=== PATIENT | female | born 1955 | race Caucasian/White ===

== ENCOUNTER 2023-05-31 18:13 | Inpatient (IN) | payer OTHER, SELFPAY ==
[2023-05-31] VITALS (13 sets, daily range): BP systolic 130–176; BP diastolic 58–103; BMI 21.1
[2023-05-31 14:01] LABS: % Basophils 0.4 % (0-2); % Immature Granulocytes 0.4 % (0-0.5); % Lymphocytes 22.1 % (20.5-51.1); % Monocytes 9.3 % (1.7-9.3); % Neutrophils 66.8 % (42.2-75.2); Absolute Eosinophils 0.1 10^3/uL (0-0.7); Absolute Lymphocytes 1.6 10^3/uL (1.2-3.4); Absolute Monocytes 0.7 10^3/uL (0.1-0.6); Absolute Neutrophils 4.8 10^3/uL (1.4-6.5); Hematocrit 41.3 % (37.0-47.0); Hemoglobin 14.4 g/dL (12.0-16.0); Mean Corp Hgb Conc. 34.9 g/dL (33.0-37.0); Mean Corpuscular Hgb 30.5 pg (27.0-31.0); Mean Corpuscular Volume 87.5 fL (81.0-99.0); Mean Platelet Volume 10.8 fL (7.4-10.4); Nucleated Red Blood Cells % 0 %; Platelet Count 288 10^3/uL (130-400); Red Blood Cell Count 4.72 10^6/uL (4.20-5.40); White Blood Cell Count 7.1 10^3/uL (4.8-10.8)
[2023-05-31 14:24] LABS: ALT (SGPT) 15 U/L (0-35); AST (SGOT) 27 U/L (14-36); Albumin 4.7 g/dl (3.5-5.0); Alkaline Phosphatase 103 U/L (38-126); Blood Urea Nitrogen 12 mg/dl (7-17); Calcium 9.7 mg/dl (8.4-10.2); Carbon Dioxide 29 mmol/L (22-30); Chloride 104 mmol/L (98-107); Glucose 103 mg/dl (70-99); Potassium 3.7 mmol/L (3.5-5.1); Sodium 137 mmol/L (135-145); Total Bilirubin 0.8 mg/dl (0.2-1.3); Total Protein 7.5 g/dl (6.3-8.2); eGFR > 60.00
[2023-05-31 14:30] LABS: Troponin I < 0.012 ng/ml
[2023-05-31 16:22] LABS: Troponin I 0.025 ng/ml
--- NOTE | 2023-05-31 16:35 | CON.CAR ---
Addendum entered and electronically signed by Alon Valentine MD 05/31/23 17:22:
I saw and examined the patient.
The CONCRETE CARPENTER's note was reviewed and I agree with the note.
Comment: 67 y/o female with hypertension, dyslipidemia, and fam history of CAD (dad [place] age 57) who is here for evaluation of episode today that included mid-sternal chest pressure (also with nausea, fogginess, palpitations, neck, throat, and
back discomfort, and leg weak feeling). Her initial ECG showed anterolateral ST depression and 2nd troponin is slightly above normal.
- trend trop if continues to rise then start heparin gtt
- cath tomorrow
- npo after midnight
- aspirin
- statin
Original Note:
Consultation
Consultation Request
Date/Time Consultation Requested: 05/31/23 1446
Date/Time Consultation Performed: 05/31/23 1600
Requesting Provider: Wilton Porter
Performing Provider: Venus SALEH for Dr. Valentine
Reason for Consultation: Chest discomfort
Medical History
-
Chief Complaint: Chest discomfort
History of Present Illness:
67 y/o female with hypertension, dyslipidemia, and fam history of CAD (dad [place] age 57) who is here for evaluation of episode today that included mid-sternal chest pressure (also with nausea, fogginess, palpitations, neck, throat, and back
discomfort, and leg weak feeling). Overall, it lasted about 2 hours. She is CP free at the time of my assessment. EKG on arrival showed ST with anterolateral ST depression. First trop normal, 2nd 0.025. Had a cath 2013 with 30% mid LAD stenosis.
Past Medical History
Past Medical History: HTN and Hypercholesterolemia
Social History
Tobacco: Non-Smoker
Employment: Employed
Family History
Family History: Early CAD (dad [place] age 57)
Allergies / Home Medications
Allergy/AdvReac Type Severity Reaction Status Date / Time
No Known Allergies Allergy Verified 05/31/23 13:12
Medicines:
amlodipine 5 mg PO daily
Otherwise takes vitamins
Review of Systems
-
History Source: Patient
All other systems: Negative unless noted
Cardiac: Chest Pain and Palpitations
Abdomen/GI: Nausea
Neurological: Other (fogginess)
Physical Exam
Vital Signs
Pulse Resp BP Pulse Ox
83 18 133/88 98
05/31/23 15:00 05/31/23 15:00 05/31/23 15:00 05/31/23 13:13
Lab Results
05/31/23 13:49
05/31/23 13:49
Troponin I 0.025 ng/ml D 05/31/23 15:52
Physical Exam
General: Well Developed, Well Nourished and No Apparent Distress
HEENT: Normocephalic and Anicteric
Respiratory: Clear and Non Labored Respirations
Cardiac: Regular Rhythm
Breast: Deferred by me
GI: Soft, Non Distended and Normal Bowel Sounds
Musculoskeletal: No Edema
Skin: Warm and Dry
Neuro: AO x 3
Psych: Calm
Impression / Plan
-
Chest discomfort:
-trend trops and EKG's
-patient risk factors: HTN, dyslipidemia, and fam hx
-EKG abnormal on arrival. Will plan for cath in AM.
-If trops trend upward, would add heparin gtt
HTN:
-continue amlodipine and monitor
Dyslipidemia:
-add statin
-check lipids in AM
Data Reviewed
-
EKG: Tracing Personally Visualized and interpreted (ST with ST abnormalities as noted)
CT Scan: Report Reviewed by me (no PE)
Medical Tests (Nuc Med, Echo etc): Report Reviewed by me (echo 04/16/23: Normal left ventricular size, wall thickness and systolic function. No regional wall motion abnormalities are seen. LV ejection fraction is 65-70% by Louie's method of
discs. Normal diastolic function. Normal right ventricular size and function. Mild mitral regurgitation. )
Labs: Labs Reviewed by me
[2023-05-31] MEDS: ASPIRIN 325 MG PO (16:42)
--- NOTE | 2023-05-31 16:54 | ED.GENMED ---
History of Present Illness
General
Chief Complaint: Chest Pain
Source: patient
Exam Limitations: none
Time Seen by Provider: 05/31/23 13:44
Travel History
Have you had any contact with someone who has COVID-19?: No
Do you have any symptoms of coronavirus? Fever > 100 degrees, chills, cough, shortness of breath, sore throat, loss of taste or smell, muscle aches, or headache?: No
History of Present Illness
History of Present Illness:
67-year-old female with history of hypertension and family history of coronary artery disease presents with onset of chest pressure palpitations diaphoresis nausea and shortness of breath that was exertional this morning. This started around 1130.
Since sitting down the emergency room for quite some time she states she has some improvement of her symptoms. She does not smoke. No leg swelling or calf pain. No recent travel or surgery. Some of the pain did radiate to her neck and to her back
Past History
Past History
ED Past Medical History: HTN
ED Past Surgical History: None
Social History
Tobacco: Former smoker
Alcohol: None
Drug: None
Phy Exam
Physical Exam
Physical Exam:
General: Well-appearing female no acute respiratory distress
HEENT: Normocephalic atraumatic neck is supple
Heart: Tachycardic but regular
Lungs: Clear to auscultation bilaterally no wheezing
Extremities: No cyanosis or edema
Skin: Warm no rash or lesion
Scores
Heart Score for Chest Pain Patients
STEMI patient?: No
History: Moderately Suspicious
ECG: Nonspecific Repolarization
Age: >/= 65 years
Risk Factors: 1 or 2 Risk Factors
Troponin: </= Normal Limit
Heart Score for Chest Pain Patients: 5
Heart Score Risk: 20.3% MACE over next 6 weeks
Course
Orders/Labs/Results
Orders:
Orders
05/31/23 13:14
EKG [Electrocardiogram (*1)] Urgent
Reason for Study: Chest Pain
EKG- Treatment ONCE
05/31/23 13:49
Complete Blood Count/With Diff Urgent
Comprehensive Metabolic Panel Urgent
Troponin I Urgent
05/31/23 14:06
CT Chest Pe Study Urgent
Comment:
Reason For Exam: chest pain, tachycardia
05/31/23 14:46
CARDIOLOGY CONSULT Urgent
Consulting Provider: Alon Valentine
Was physician already notified: Yes
05/31/23 15:52
Troponin I Urgent
05/31/23 16:27
EKG [Electrocardiogram (*1)] Routine
Reason for Study: Chest Pain
05/31/23 16:29
Aspirin 325 mg PO NOW STA
05/31/23 18:00
Rosuvastatin Calcium [Crestor] 40 mg PO QPM
05/31/23 22:00
Troponin I Q6H
06/01/23 04:00
Troponin I Q6H
06/01/23 06:00
Electrocardiogram (*1) IN AM
Reason for Study: Chest Pain
NPO
Allow oral meds: Yes
Allow clear liquids: No
Hgba1c [Glycohemoglobin (HgbA1c)] IN AM
Lipid Profile [Cardiovascular Evaluation] IN AM
06/01/23 08:00
Aspirin Chewable [Low Strength Aspirin] 81 mg PO DAILY
Abnormal Lab Results
05/31/23
13:49
MPV 10.8 H fL
(7.4-10.4)
Absolute Monos (auto) 0.7 H 10^3/uL
(0.1-0.6)
Glucose 103 H mg/dl
(70-99)
05/31/23 13:49
05/31/23 13:49
Vital Signs
Initial and Last Documented VS:
Initial Vital Signs
Pulse Resp BP Pulse Ox
126 16 176/103 98
05/31/23 13:13 05/31/23 13:13 05/31/23 13:13 05/31/23 13:13
Last Documented Vital Signs
Pulse Resp BP Pulse Ox
83 18 133/88 98
05/31/23 15:00 05/31/23 15:00 05/31/23 15:00 05/31/23 13:13
MDM/Problems Addressed
Differential Diagnosis Includes:
Chest pain. Differential could include ACS versus PE dissection less likely.
Will check labs including troponin EKG. Given persistent tachycardia on exam, will order CT PE study
*Critical Care Note
Total Time (30-74mins, 75-104mins- exclusive of procedures): Not Applicable
Update Note
Update Note:
Initial troponin on phone and did increase to 0.025 which is still normal there is a change. Patient has concerning story. Contacted cardiology who saw the patient and recommended aspirin load and keep in hospital for catheterization tomorrow.
ED Attending Note
-
Portions of this chart may have been created with voice recognition software.� Occasional wrong word or��sound alike� substitutions may have occurred due to the inherent limitations of voice recognition software.
Discharge Plan
Departure
Patient Disposition: Admit
Date of Disposition: 05/31/23
Time of Disposition: 17:04
Admit to: Telemetry
Presentation/result/management discussed w/ accepting MD/DO: Hospitalist
Discharge Problem:
Chest pain
Prescriptions:
No Action
lisinopril 20 MG tablet
20 mg PO HS
aspirin 81 MG tablet,delayed release (DR/EC)
81 mg PO DAILY
ascorbic acid (vitamin C) [Vitamin C] 500 MG tablet
500 mg PO DAILY
cholecalciferol (vitamin D3) 2,000 UNITS tablet
2,000 units PO DAILY
vitamin E (dl, acetate) 400 UNITS capsule
400 units PO DAILY
omega 1-qrf-zer-fish oil [Fish Oil] 1 EACH capsule
1 ea PO DAILY
amoxicillin 500 MG capsule
500 mg PO TID Qty: 21 0RF
Referrals:
UNKNOWN - PT DOES,NOT KNOW [Family Provider] -
Interventions
Interventions:
*Risk Screen - Suicide Last Done: 05/31/23 13:13
*General Assessment Last Done: 05/31/23 13:13
*Neglect/Abuse Screening Last Done: 05/31/23 13:13
*ED COVID-19 Vaccine History Last Done: 05/31/23 13:28
ED- Cardiac Assessment Last Done: 05/31/23 13:50
--- NOTE | 2023-05-31 17:06 | HPS.HSE ---
Addendum entered and electronically signed by Waleska Milton MD 05/31/23 17:53:
67-year-old female presented with chest pain she feels like muscle tightness in the throat
On examination awake alert oriented neck no neck distress
Cardiovascular system sounds appreciated
Chest clear to auscultation
Abdomen soft nontender
Extremity no edema
# Chest pain
CT-PE study negative
EKG ST depressions anterolateral leads and T inversions in the inferior leads
Admit for cardiac workup
Nonobstructive coronary artery disease and previous CAD
Check troponin
If going up may need heparin drip
Cardiology has been consulted
Continue aspirin, add beta-blockers, statin
Lipid panel in the morning
# Hypertension-Norvasc to be continued
Add Coreg
# Dyslipidemia-statin
#Ex Smoker
# DVT prophylaxis Lovenox
#CODE STATUS-patient wants to be DNR
Original Note:
Family Physician
-
Family Physician: NOT KNOW UNKNOWN - PT DOES
Chief Complaint
-
chest pain
History of Present Illness
67 y/o female with hypertension, dyslipidemia presented to us with mid-sternal chest pressure radiating to shoulder blades and left-sided neck this morning.She is CP free at the time of my assessment. denied CHAUDHRY, dizzy or syncopal episode. denied
abdominal pain,n,v,d. denied dysuria or hematuria.
EKG on arrival showed ST with anterolateral ST depression. First trop normal, 2nd 0.025.� Had a cath 2013 with 30% mid LAD stenosis. admitting for further managment.
Medical History
Past Medical History
Past Medical History: Reports Other
Additional Past Medical History:
htn
hld
Past Surgical History: Reports Other
Additional Past Surgical History:
cataract surgery
Social History
Tobacco: Former Smoker
Alcohol: None
Drug: None
Personal: Partner
Living: With Family
Employment: Employed
Family History
Family History: Not pertinent
Allergies / Home Medications
Allergies reflects when Allergies were last updated in [employer].
Home Medications with original date entered in [employer]
Allergy/Medication List:
Allergies
Allergy/AdvReac Type Severity Reaction Status Date / Time
No Known Allergies Allergy Verified 05/31/23 13:12
Home Medications
amlodipine 5 mg tablet 5 mg PO DAILY 05/31/23
ascorbic acid (vitamin C) 500 mg tablet (Vitamin C) 500 mg PO DAILY 05/31/23
aspirin 81 mg tablet,delayed release 81 mg PO DAILY 05/31/23
cholecalciferol (vitamin D3) 50 mcg (2,000 unit) tablet (Vitamin D3) 50 mcg PO DAILY 05/31/23
omega 6-ngb-ysq-fish oil 1,000 mg (120 mg-180 mg) capsule (Fish Oil) 1 cap PO DAILY 05/31/23
vitamin E 268 mg (400 unit) capsule 268 mg PO DAILY 05/31/23
Review of Systems
-
Constitutional: Reports No Symptoms
EENT: Reports No Symptoms
Respiratory: Reports No Symptoms
Cardiac: Reports Chest Pain
Abdomen/GI: Reports No Symptoms
: Reports No Symptoms
Musculoskeletal: Reports No Symptoms
Skin: Reports No Symptoms
Neurological: Reports No Symptoms
Endocrine: Reports No Symptoms
Hematologic/Lymphatic: Reports No Symptoms
Psych: Reports No Symptoms
Physical Exam
Vital Signs
Vital Signs
Pulse Resp BP Pulse Ox
83 18 133/88 98
05/31/23 15:00 05/31/23 15:00 05/31/23 15:00 05/31/23 13:13
Physical Exam
General: Well Developed, Well Nourished and No Apparent Distress
HEENT: NormoCephalic, Moist mucous membranes and Atraumatic
Respiratory: Clear
Cardiac: S1/S2 and Regular Rhythm; No Murmur or Rub
GI: Soft, Non Tender, Non Distended and Normal Bowel Sounds; No Organomegaly
Rectal: Deferred by Provider
Musculoskeletal: No Clubbing, No Cyanosis and No Edema
Skin: No Rash
Neuro: AO x 3 and Nonfocal/grossly intact
Psych: Calm
Laboratory Results
-
05/31/23 13:49
05/31/23 13:49
Laboratory Results
Total Bilirubin 0.8 mg/dl (0.2-1.3) 05/31/23 13:49
AST 27 U/L (14-36) 05/31/23 13:49
ALT 15 U/L (0-35) 05/31/23 13:49
Alkaline Phosphatase 103 U/L (38-126) 05/31/23 13:49
Troponin I 0.025 ng/ml D 05/31/23 15:52
Data Reviewed
-
Diagnostic Radiology: Report Reviewed by me
Lab Data: Labs Reviewed by me
Impression/Plan
-
#exertional chest pain associated with sob r/o ACS
-trop 0.025
-trend trop
-chest CT with No evidence of pulmonary embolism. No significant abnormality identified in the chest, as described above
-EKG with sinus tachycardia, possible left arterial enlargement, nonsepcific ST and T wave abnormality
- cath in AM.
-heparin drip if trop trending up
-asa continued
-stain
-cardiology consulted
#essential htn
-hypertensive on arrival
-Norvasc continued
-Coreg 3125 added
#Dyslipidemia:
-statin
-check lipids in AM
#DVT prophylaxis
-Lovenox
#CODE status
-DNR
[2023-05-31] MEDS: COREG 3.125 MG PO (18:29)
[2023-05-31] MEDS: FLUSH (NSS) 1 FLUSH IV (18:56)
[2023-05-31] MEDS: CRESTOR 40 MG PO (18:56)
[2023-05-31 23:14] LABS: Troponin I 0.032 ng/ml
[2023-06-01] VITALS (11 sets, daily range): BP systolic 107–136; BP diastolic 48–89
[2023-06-01] MEDS: COREG PO (00:05)
[2023-06-01] MEDS: LOVENOX 40 MG SC (00:05)
--- NOTE | 2023-06-01 00:26 | PTCARENOTE ---
Pt rec'd from ED few mins before midnight. No c/o cp or sob. adm hx taken and recorded. Sinus on telemetry. Pt aware of npo status after mn for cath. Call paul within reach. Pt instructed to call if cp reoccurs
[2023-06-01 06:35] LABS: Hematocrit 37.8 % (37.0-47.0); Mean Corp Hgb Conc. 34.4 g/dL (33.0-37.0); Mean Corpuscular Hgb 30.2 pg (27.0-31.0); Mean Corpuscular Volume 87.9 fL (81.0-99.0); Mean Platelet Volume 11.2 fL (7.4-10.4); Platelet Count 290 10^3/uL (130-400); Red Cell Dist. Width 13.2 % (11.5-14.5); White Blood Cell Count 8.3 10^3/uL (4.8-10.8)
--- NOTE | 2023-06-01 06:41 | PTCARENOTE ---
Pt cp free during the night. Remains npo for cath today
[2023-06-01 07:00] LABS: Blood Urea Nitrogen 19 mg/dl (7-17); Calcium 9.3 mg/dl (8.4-10.2); Carbon Dioxide 27 mmol/L (22-30); Chloride 104 mmol/L (98-107); Estimated Creatinine Clearance 69 ml/min; Glucose 94 mg/dl (70-99); HDL Cholesterol 68 mg/dl; LDL Cholesterol, Calculated 128 mg/dl; Potassium 3.7 mmol/L (3.5-5.1); Sodium 136 mmol/L (135-145); Total Cholesterol 213 mg/dl (50-199); Triglyceride 89 mg/dl (10-149); Very Low Density Lipoprotein 17 mg/dl (0-30); eGFR > 60.00
[2023-06-01 07:15] LABS: Troponin I 0.027 ng/ml
[2023-06-01 08:23] LABS: Hepatitis C Antibody Negative (Negative)
--- NOTE | 2023-06-01 08:30 | W.PN.HOSP.TC ---
Today's Communication/Plan
-
Cath
Assessment / Plan
Assessment / Plan
On examination awake alert oriented
Cardiovascular system sounds appreciated
Chest clear to auscultation
Abdomen soft nontender
Extremity no edema
# Chest pain
CT-PE study negative
EKG ST depressions anterolateral leads and T inversions in the inferior leads
Nonobstructive coronary artery disease and previous cath
Trop neg
Add PPI
Continue aspirin, add beta-blockers, statin
Lipid panel moted
# Hypertension-Norvasc to be continued
Added Coreg
# Dyslipidemia-statin
#Ex Smoker
# DVT prophylaxis Lovenox
#CODE STATUS-code status readdressed. DNR is for irreversible changes. She will be full code per today's discussion.
D/W RN at bed side
Anticipated Discharge: Within 24 hours
Subjective/Interval History
-
Date of Service: June 01, 2023
Objective Data
-
Labs:
Laboratory Results
06/01/23
05:48
WBC 8.3
Hgb 13.0
Hct 37.8
Plt Count 290
Sodium 136
Potassium 3.7
Chloride 104
Carbon Dioxide 27
BUN 19 H
Creatinine 0.7
Glucose 94
Calcium 9.3
Vital Signs:
Vital Signs
Temp Pulse Resp BP Pulse Ox
98.6 F 79 16 136/56 95
06/01/23 08:25 05/31/23 23:46 06/01/23 08:25 06/01/23 08:27 06/01/23 08:25
[2023-06-01] MEDS: LOW STRENGTH ASPIRIN 81 MG PO (08:31)
[2023-06-01] MEDS: COREG 3.125 MG PO (08:32)
[2023-06-01] MEDS: NORVASC 5 MG PO (08:32)
[2023-06-01] MEDS: VITAMIN D3 (cholecalciferol) 50 MCG PO (08:32)
[2023-06-01] MEDS: PROTONIX 40 MG PO (08:33)
--- NOTE | 2023-06-01 10:28 | CM ---
CM following for DC planning needs.
Met w/ patient at bedside to complete initial assessment.
Pt. resides in a private, 2 story home w/ friend and occasionally adult son. She is functionally indep. at baseline w/ ADLs, mobility without any assisted device.
Pt. has Rx plan and uses [facility] in [place].
Plan is for DC to home without needs.
Will cont. to follow.
[2023-06-01 11:15] LABS: Glycohemoglobin (HgbA1c) 5.9 % (4.0-5.6)
[2023-06-01] MEDS: PROTONIX PO (11:34)
[2023-06-01 13:55] LABS: ACT-LR - POC 274 Seconds (116-155)
--- NOTE | 2023-06-01 14:33 | ITS.CL.CATH ---
Medical Transport Specialist - Catheterization
Cardiac Catheterization
Procedure Report:
CARDIAC CATHETERIZATION REPORT
Date of Procedure: 06/01/2023
Referring: Alon Valentine MD
Indication: Suspected unstable angina (peak Trop 0.032)
HEMODYNAMIC DATA
AO: 150/68
LV: 150/14
LEFT VENTRICULOGRAPHY: Normal left ventricular wall motion with EF 67%
CORONARY ANGIOGRAPHY
Dominance: Right
Left Main: Normal
LAD: Focal 50% mid LAD stenosis spanning the takeoff of the second septal prior authorization technician. There is 30-40% mid to distal LAD stenosis past the takeoff of the large second diagonal branch
Circumflex: Normal
RCA: Normal dominant vessel
FloWire assessment: At the conclusion of the diagnostic study we proceeded with FloWire assessment of the LAD disease. Heparin was used for anticoagulation. A 5 Armenian JL 3.5 guide catheter was advanced to the left coronary ostium. A [employer] flow
wire was advanced into the distal LAD. iFR measurements were 0.95, 0.95, and 0.95. These are all consistent with nonflow-limiting disease.
Closure Device: None-the procedure was performed via the right radial artery. The Shlomo's test was normal prior to the procedure.
Radiation (mGy): 48.6
DAP (cm2.Gy): 5.0
Fluoroscopy time: 4.7 minutes
CONCLUSIONS
1: Systemic hypertension
2: Normal left ventricular function with EF 67%
3. Single-vessel CAD as described above in the LAD. The disease is non-flow limiting
4. Recommend ASA and statin to keep LDL<70
Copy to: Sergo Calloway MD and Laurel Torrez DO
Naeem French MD, [facility], [facility]
--- NOTE | 2023-06-01 15:12 | W.DS.TRANS ---
Addendum entered and electronically signed by Waleska Milton MD 06/01/23 15:43:
Dictation- [id number]
Original Note:
DC Summary - Airline Reservationist
-
Discharge Instructions:
Discharge Diagnosis/Procedures Cardiac catheterization, nonobstructive coronary
artery disease, hypertension, high cholesterol
Diet Low Fat,2 Gram Sodium
Activity As tolerated
Driving Restrictions No driving for 24 hours
Blood Work cholesterol in 3 months
Instructions:
Stand-Alone Forms: DC Instructions- Cath/EP Lab
Changes to Home Medications: Yes
Discharge Medications:
DC Medications w/original date entered in [employer]
amlodipine 5 mg tablet 5 mg PO DAILY Blood Pressure 05/31/23
ascorbic acid (vitamin C) 500 mg tablet (Vitamin C) 500 mg PO DAILY Supplement 05/31/23
aspirin 81 mg tablet,delayed release 81 mg PO DAILY Blood Clot Prevention/Tx 05/31/23
cholecalciferol (vitamin D3) 50 mcg (2,000 unit) tablet (Vitamin D3) 50 mcg PO DAILY Supplement 05/31/23
omega 6-jth-cre-fish oil 1,000 mg (120 mg-180 mg) capsule (Fish Oil) 1 cap PO DAILY Supplement 05/31/23
carvedilol 3.125 mg tablet 3.125 mg PO BID Blood pressure #60 tabs 06/01/23
pantoprazole 40 mg tablet,delayed release 40 mg PO DAILY PRN heart burn #30 tabs 06/01/23
rosuvastatin 40 mg tablet 40 mg PO QPM High cholesterol #30 tabs 06/01/23
Home Medication Changes
new
carvedilol 3.125 mg tablet 3.125 mg PO BID Blood pressure #60 tabs 06/01/23
pantoprazole 40 mg tablet,delayed release 40 mg PO DAILY PRN heart burn #30 tabs 06/01/23
rosuvastatin 40 mg tablet 40 mg PO QPM High cholesterol #30 tabs 06/01/23
Pending Results: No
[2023-06-01] MEDS: LOVENOX SC (17:25)
[2023-06-01] MEDS: CRESTOR 40 MG PO (17:25)
--- NOTE | 2023-06-01 18:33 | PTCARENOTE ---
Pt recovered post cardiac cath done via right radial artery. Radial band removed without problem. Pt denied any discomfort, voiding without difficulty, up walking independently. Pt seen by Dr. Galeano and . Telemetry and IV device removed.
Discharge instructions reviewed with pt and her daughter regarding activity and driving guidelines, medications and their possible side effects, wound care, reporting cares and concerns and follow up appt's. very good understanding verbalized. Pt
escorted out via wheelchair and discharge to home.
== END 2023-06-01 18:39 | disposition home or self-care (01) | DRG 287 ==
LOC: IVU 18:13
PROVIDERS: Internal Medicine Cardiovascular Disease; Nurse Practitioner; Physician Assistant; Registered Nurse; ADMITTING PHYSICIAN Hospitalist; CONSULT PHYSICIAN Internal Medicine Cardiovascular Disease; EMERGENCY PHYSICIAN Student in an Organized Health Care Education/Training Program
PROC: B2151ZZ Fluoroscopy of Left Heart using Low Osmolar Contrast (ICD-10-PCS; 2023-06-01)
PROC: B2111ZZ Fluoroscopy of Multiple Coronary Arteries using Low Osmolar Contrast (ICD-10-PCS; 2023-06-01)
PROC: 4A023N7 Measurement of Cardiac Sampling and Pressure, Left Heart, Percutaneous Approach (ICD-10-PCS; 2023-06-01)
DX: I25.10 Atherosclerotic heart disease of native coronary artery without angina pectoris (principal); I10 Essential (primary) hypertension; E78.00 Pure hypercholesterolemia, unspecified; Z87.891 Personal history of nicotine dependence; Z79.82 Long term (current) use of aspirin; Z66 Do not resuscitate; Z82.49 Family history of ischemic heart disease and other diseases of the circulatory system
CPT/HCPCS: 71275; 80048; 80053; 80061; 83036; 84484; 85025; 85027; 85347; 86803; 93005; 93458; 93571; 99285; C1769; C1894; Q9967

== ENCOUNTER → 2023-06-27 14:38 | Outpatient (REF) | payer OTHER, SELFPAY | LOC: RAD 14:38 | PROVIDERS: ATTENDING PHYSICIAN Internal Medicine Cardiovascular Disease; FAMILY PHYSICIAN Family Medicine | DX: I10 Essential (primary) hypertension (principal) | CPT/HCPCS: 93975 ==

== ENCOUNTER → 2023-07-04 08:16 | Outpatient (REF) | payer OTHER, SELFPAY | LOC: RCS 08:16 | PROVIDERS: ATTENDING PHYSICIAN Nurse Practitioner; FAMILY PHYSICIAN Family Medicine | DX: R00.1 Bradycardia, unspecified (principal) | CPT/HCPCS: 93225; 93226 ==

== ENCOUNTER 2023-12-02 10:45 | Emergency (ER) | payer OTHER, SELFPAY ==
[2023-12-02 10:52] VITALS: BP 142/81
[2023-12-02 11:25] LABS: Urine Albumin 1+ (Neg - Trace); Urine Bilirubin 1+ (Negative); Urine Character Very Cloudy (Clear); Urine Color Yellow; Urine Glucose Negative (Negative); Urine Ketone Trace (Negative); Urine Leukocyte 2+ (Negative); Urine Nitrite Positive (Negative); Urine Occult Blood 4+ (Negative); Urine Urobilinogen 1+ (Neg - 1+)
--- NOTE | 2023-12-02 11:27 | ED.GENMED ---
Addendum entered and electronically signed by Mirian Henry NP 12/05/23 09:56:
Final urine culture back: Pt on Keflex. States symptoms of hematuria, burning, frequency are gone and she feels better. No changes needed.
Addendum entered and electronically signed by Wilton Porter PA-C 12/04/23 07:11:
Pulmonary urine culture shows greater than 100,000 colony-forming units of E. coli. Patient placed on Keflex. Sensitivities pending
Original Note:
History of Present Illness
General
Chief Complaint: Urinary Symptoms
Time Seen by Provider: 12/02/23 10:57
History of Present Illness
History of Present Illness:
HPI: Onset today of dysuria and blood on toilet paper while wiping; associated w/ urgency. The patient had been on antibiotics related to sinusitis and laryngitis earlier this month.
EXAM:
GENERAL: Well appearing in no distress
HEENT: Moist oral mucosa
CARDIOVASCULAR: No murmurs, normal heart rate, regular rhythm, No chest wall tenderness
PULMONARY: No respiratory distress, breath sounds are clear and equal
ABDOMEN: Soft with no peritoneal signs, no tenderness, no CVA tenderness
NEUROLOGIC: Excellent strength all extremities, no coordination deficits
PSYCHIATRIC: Appropriate mental status, normal insight and judgement
EXTREMITIES: Nontender, no edema, moves all extremities equally
SKIN: No rash, no lesions
TIME OF INITIAL ENCOUNTER: 11:30 AM
NUMBER AND COMPLEXITY OF PROBLEMS ADDRESSED AT THE ENCOUNTER
� Chronic conditions affecting care: CAD, high blood pressure, renal insufficiency
� Acute Exacerbation and/or Progression of Chronic Illness: This is an acute problem
� Differential Diagnosis includes: UTI, hemorrhagic cystitis, pyelonephritis, ureteral stone
AMOUNT AND/OR COMPLEXITY OF DATA TO BE REVIEWED AND ANALYZED
� I performed an independent evaluation of and my interpretation is:
EKG:
CT:
X-rays:
Laboratory Studies: Urinalysis shows 4+ blood along with positive nitrite
Other:
� Review of other/old records: The patient was here earlier this year with a elevated troponin and had a cardiac catheterization
� Clinical information was obtained by an independent historian:
� Prescriptions/Medications Considered but not given:
� Further testing considered but not performed: Considered CT imaging for further evaluation of the hematuria however the patient has no pain therefore highly doubt stone
RISK OF COMPLICATIONS AND/OR MORBIDITY OR MORTALITY OF PATIENT MANAGEMENT
� Social determinants of health affecting care: Lives at home
� Discussion with other providers:
� Escalation of care including admission/observation vs risk of discharge considered: Urinalysis shows evidence of infection. Placed on Keflex.
Past History
Past History
ED Past Medical History: HTN
ED Past Surgical History: None
Social History
Tobacco: Former smoker
Alcohol: None
Drug: None
Phy Exam
Physical Exam
Physical Exam:
See HPI
Course
Orders/Labs/Results
Orders:
Orders
12/02/23 10:58
Urinalysis Reflex To Culture Urgent
Date Specimen was Collected: 12/02/23
Time Specimen was Collected: 10:54
Urine Microscopic Reflex Cult Urgent
Urine Culture Urgent
SANTOS Source: U
Specimen Description:
Date Specimen was Collected: 12/02/23
Time Specimen was Collected: 10:54
Abnormal Lab Results
12/02/23
10:58
Urine Ketones Trace A
(Negative)
Ur Occult Blood Reflex 4+ A
(Negative)
Urine Nitrite (Reflex) Positive A
(Negative)
Urine Bilirubin 1+ A
(Negative)
Leukocyte Esterase Rfl 2+ A
(Negative)
Urine RBC 40-50 A /HPF
(0-2)
Urine WBC (Reflex) 50-60 A /HPF
(0-5)
Urine Bacteria (Reflex) Moderate A
(Negative)
Urine Albumin (Reflex) 1+ A
(Neg - Trace)
Vital Signs
Initial and Last Documented VS:
Initial Vital Signs
Temp Pulse Resp BP Pulse Ox
98.6 F 99 16 142/81 98
12/02/23 10:52 12/02/23 10:52 12/02/23 10:52 12/02/23 10:52 12/02/23 10:52
Last Documented Vital Signs
Temp Pulse Resp BP Pulse Ox
98.6 F 99 16 142/81 98
12/02/23 10:52 12/02/23 10:52 12/02/23 10:52 12/02/23 10:52 12/02/23 10:52
*Critical Care Note
Total Time (30-74mins, 75-104mins- exclusive of procedures): Not Applicable
ED Attending Note
-
Portions of this chart may have been created with voice recognition software.� Occasional wrong word or��sound alike� substitutions may have occurred due to the inherent limitations of voice recognition software.
Discharge Plan
Departure
Patient Disposition: Home (Routine Discharge)
Date of Disposition: 12/02/23
Time of Disposition: 11:47
Patient with high blood pressure during this ER visit?: Yes
Discharge Problem:
Urinary tract infection
Instructions: Urinary Tract Infection, Adult (DC), BLOOD PRESSURE
Prescriptions:
New
cephalexin 500 mg tablet
500 mg PO TID Qty: 21 0RF
No Action
amlodipine 5 mg tablet
5 mg PO DAILY
aspirin 81 mg Tablet,Delayed Release (Dr/Ec)
81 mg PO DAILY
ascorbic acid (vitamin C) [Vitamin C] 500 mg Tablet
500 mg PO DAILY
cholecalciferol (vitamin D3) [Vitamin D3] 50 mcg (2,000 unit) Tablet
50 mcg PO DAILY
omega 2-mzk-nnk-fish oil [Fish Oil] 1,000 mg (120 mg-180 mg) Capsule
1 cap PO DAILY
carvedilol 3.125 mg Tablet
3.125 mg PO BID Qty: 60 0RF
pantoprazole 40 mg Tablet,Delayed Release (Dr/Ec)
40 mg PO DAILY PRN (Reason: heart burn) Qty: 30 0RF
rosuvastatin 40 mg Tablet
40 mg PO QPM Qty: 30 0RF
Referrals:
Laurel Torrez DO [Family Provider] -
Activity Restrictions/Additional Instructions:
I sent a prescription for Keflex to your pharmacy. Return here if worse. Follow-up with primary care doctor.
Interventions
Interventions:
*Risk Screen - Suicide Last Done: 12/02/23 10:52
*General Assessment Last Done: 12/02/23 10:52
*Neglect/Abuse Screening Last Done: 12/02/23 10:52
*Nursing Disposition Last Done: 12/02/23 12:11
ED-Female Genitourinary Assessment Last Done: 12/02/23 11:50
Discharge Date and Time
Discharge Date/Time: 12/02/23 12:14
Print Language: MONGOLIAN
[2023-12-02 12:54] LABS: Urine Red Blood Cell 40-50 /HPF (0-2); Urine White Cell 50-60 /HPF (0-5)
[2023-12-02 12:55] LABS: Urine Bacteria Moderate (Negative)
== END 2023-12-02 12:14 | disposition home or self-care (01) ==
LOC: EMR 10:45
PROVIDERS: EMERGENCY PHYSICIAN Emergency Medicine; FAMILY PHYSICIAN Family Medicine
DX: N39.0 Urinary tract infection, site not specified (principal); I10 Essential (primary) hypertension; Z87.891 Personal history of nicotine dependence
CPT/HCPCS: 99283; 81003; 81015; 87071; 87086; 87186

== ENCOUNTER 2023-12-16 00:12 | Emergency (ER) | payer OTHER, SELFPAY ==
[2023-12-16 00:14] VITALS: BP 135/64
[2023-12-16 00:33] VITALS: BMI 17.5
--- NOTE | 2023-12-16 00:42 | ED.GENMED ---
History of Present Illness
<Ioana Vega MD, Resident - Last Filed: 12/16/23 03:59>
General
Chief Complaint: Urinary Symptoms
Source: patient
Exam Limitations: none
Time Seen by Provider: 12/16/23 00:36
Nursing documentation reviewed up to this point in time: agreed with
History of Present Illness
History of Present Illness:
68-year-old female with history of hypertension who presents to the ED today with urinary urgency and frequency x 2 days, with hematuria also starting today.
Of note patient was seen in the ED 2 weeks ago for urinary symptoms, diagnosed with a UTI and prescribed cephalexin for 7 days. Urine culture was positive for E. coli with resistance to cefazolin. She completed cephalexin course with resolution of
urinary symptoms.
She has had one other remote episode of UTI.
She denies dysuria, flank pain, suprapubic pain, or fever/sweats/chills.
Past History
<Ioana Vega MD, Resident - Last Filed: 12/16/23 03:59>
Past History
ED Past Medical History: HTN
ED Past Surgical History: Cardiac (catherterization)
Patient has exhibited threatening behavior?: No
Social History
Tobacco: Former smoker
Alcohol: Occasional
Drug: None
Employment: Employed
Review of Systems
<Ioana Vega MD, Resident - Last Filed: 12/16/23 03:59>
Review of Systems
Allergies reviewed?: Yes
Constitutional: Denies fever, night sweats or chills
ABD/GI: Denies abdominal pain
: Reports frequency, urgency and bleeding; Denies dysuria or flank pain
Phy Exam
<Ioana Vega MD, Resident - Last Filed: 12/16/23 03:59>
General Physical Exam
General Presentation: well appearing and no apparent distress
General Skin: warm and dry
General Habitus: normal
General Mental: alert
Cardiovascular Exam
Cardiovascular Exam: regular rate/rhythm, no edema, no gallop and no murmur
Pulmonary Exam
Pulmonary Exam: lungs clear, no respiratory distress, no rales, no crackles, no rhonchi and no wheezing
Gastrointestinal Exam
Gastrointestinal Exam: normal bowel sounds, non tender, soft, non distended and no cva tenderness
Course
<Ioana Vega MD, Resident - Last Filed: 12/16/23 03:59>
Orders/Labs/Results
Orders:
Orders
12/16/23 00:38
Urinalysis Reflex To Culture Urgent
Date Specimen was Collected: 12/16/23
Time Specimen was Collected: 00:32
Urine Microscopic Reflex Cult Urgent
Urine Culture Urgent
SANTOS Source: U
Specimen Description:
Date Specimen was Collected: 12/16/23
Time Specimen was Collected: 00:32
12/16/23 01:25
Phenazopyridine HCl [Pyridium] 100 mg PO NOW STA
12/16/23 01:26
Nitrofurantoin Monohydrate [Macrobid] 100 mg PO NOW STA
Nitrofurantoin Monohydrate [Macrobid] 100 mg PO NOW STA
12/16/23 01:34
Phenazopyridine HCl [Pyridium] 100 mg PO NOW STA
12/16/23 01:37
Phenazopyridine HCl [Pyridium] 100 mg .ROUTE .[facility]
Abnormal Lab Results
12/16/23
00:38
Ur Occult Blood Reflex 4+ A
(Negative)
Leukocyte Esterase Rfl 2+ A
(Negative)
Urine RBC >100 A /HPF
(0-2)
Urine WBC (Reflex) >100 A /HPF
(0-5)
Urine Bacteria (Reflex) Moderate A
(Negative)
Urine Albumin (Reflex) 2+ A
(Neg - Trace)
Vital Signs
Initial and Last Documented VS:
Initial Vital Signs
Temp Pulse Resp BP Pulse Ox
97.7 F 94 19 135/64 98
12/16/23 00:14 12/16/23 00:14 12/16/23 00:14 12/16/23 00:14 12/16/23 00:14
Last Documented Vital Signs
Temp Pulse Resp BP Pulse Ox
98 F 96 20 129/62 98
12/16/23 01:32 12/16/23 01:32 12/16/23 01:32 12/16/23 01:32 12/16/23 02:13
<Tej Joyce, DO - Last Filed: 12/16/23 01:27>
Orders/Labs/Results
Orders:
Orders
12/16/23 00:38
Urinalysis Reflex To Culture Urgent
Date Specimen was Collected: 12/16/23
Time Specimen was Collected: 00:32
Urine Microscopic Reflex Cult Urgent
Urine Culture Urgent
SANTOS Source: U
Specimen Description:
Date Specimen was Collected: 12/16/23
Time Specimen was Collected: 00:32
12/16/23 01:25
Phenazopyridine HCl [Pyridium] 100 mg PO NOW STA
12/16/23 01:26
Nitrofurantoin Monohydrate [Macrobid] 100 mg PO NOW STA
Nitrofurantoin Monohydrate [Macrobid] 100 mg PO NOW STA
12/16/23 01:34
Phenazopyridine HCl [Pyridium] 100 mg PO NOW STA
12/16/23 01:37
Phenazopyridine HCl [Pyridium] 100 mg .ROUTE .[facility]
Abnormal Lab Results
12/16/23
00:38
Ur Occult Blood Reflex 4+ A
(Negative)
Leukocyte Esterase Rfl 2+ A
(Negative)
Urine RBC >100 A /HPF
(0-2)
Urine WBC (Reflex) >100 A /HPF
(0-5)
Urine Bacteria (Reflex) Moderate A
(Negative)
Urine Albumin (Reflex) 2+ A
(Neg - Trace)
Vital Signs
Initial and Last Documented VS:
Initial Vital Signs
Temp Pulse Resp BP Pulse Ox
97.7 F 94 19 135/64 98
12/16/23 00:14 12/16/23 00:14 12/16/23 00:14 12/16/23 00:14 12/16/23 00:14
Last Documented Vital Signs
Temp Pulse Resp BP Pulse Ox
98 F 96 20 129/62 98
12/16/23 01:32 12/16/23 01:32 12/16/23 01:32 12/16/23 01:32 12/16/23 02:13
<Ioana Vega MD, Resident - Last Filed: 12/16/23 03:59>
MDM/Problems Addressed
Differential Diagnosis Includes:
cystitis
MDM/Problems Addressed:
Identical presentation to previous UTI, treated with Keflex. Likely inadequate abx coverage with Keflex. Will treat with Macrobid in accordance with susceptibility from urine culture. Will add pyridium.
<Ioana Vega MD, Resident - Last Filed: 12/16/23 03:59>
*Critical Care Note
Total Time (30-74mins, 75-104mins- exclusive of procedures): Not Applicable
ED Attending Note
<Ioana Vega MD, Resident - Last Filed: 12/16/23 03:59>
-
Portions of this chart may have been created with voice recognition software.� Occasional wrong word or��sound alike� substitutions may have occurred due to the inherent limitations of voice recognition software.
<Tej Joyce, DO - Last Filed: 12/16/23 01:27>
ED Attending Note
Patient seen and examined by attending physician: Yes
I performed a history and physical exam of patient and discussed management with resident, I reviewed resident's note and agree with documented findings and plan of care.: Yes
ED Attending Note:
I have seen and evaluated the patient with a [id number] encounter. I have spoken to the resident and involved in the medical history, the physical exam, medical decision making.
Evaluation and management service: agree unless noted differently below.
Results interpretation: agree unless noted differently below.
Focused HPI: 68-year-old female presenting to the emergency department with increased urinary frequency that is now associated with bleeding. She was evaluated 2 weeks ago with increased urinary frequency and found to have a UTI. She was
prescribed Keflex. She was called when there was concern that Keflex was not going to treat the urinary tract infection. Because her symptoms was improving, she did not switch the antibiotics. Symptoms are now gotten worse but she denies any back
pain or fevers
Physical exam: Sitting in bed comfortably. Abdominal exam soft and nontender
Medical Decision Making: Based on the E. coli susceptibility from recent urine culture, will switch to Macrobid and start pyridium
Discharge Plan
Departure
Patient Disposition: Home (Routine Discharge)
Date of Disposition: 12/16/23
Time of Disposition: 01:59
Patient with high blood pressure during this ER visit?: Yes
Discharge Problem:
Acute UTI (urinary tract infection)
Instructions: Urinary Tract Infection, Adult (DC), BLOOD PRESSURE
Prescriptions:
New
nitrofurantoin monohyd/m-cryst [Macrobid] 100 mg capsule
100 mg PO BID Qty: 13 0RF
phenazopyridine [Pyridium] 100 mg tablet
100 mg PO TID Qty: 5 0RF
No Action
amlodipine 5 mg tablet
5 mg PO DAILY
aspirin 81 mg Tablet,Delayed Release (Dr/Ec)
81 mg PO DAILY
ascorbic acid (vitamin C) [Vitamin C] 500 mg Tablet
500 mg PO DAILY
cholecalciferol (vitamin D3) [Vitamin D3] 50 mcg (2,000 unit) Tablet
50 mcg PO DAILY
omega 4-udr-owr-fish oil [Fish Oil] 1,000 mg (120 mg-180 mg) Capsule
1 cap PO DAILY
rosuvastatin 40 mg Tablet
40 mg PO QPM Qty: 30 0RF
Interventions
Interventions:
*Risk Screen - Suicide Last Done: 12/16/23 00:14
*General Assessment Last Done: 12/16/23 00:14
*Neglect/Abuse Screening Last Done: 12/16/23 00:14
ED- Fall Risk Assessment Last Done: 12/16/23 00:42
*ED COVID-19 Vaccine History Last Done: 12/16/23 00:14
*Nursing Disposition Last Done: 12/16/23 02:13
ED-Female Genitourinary Assessment Last Done: 12/16/23 00:42
Discharge Date and Time
Discharge Date/Time: 12/16/23 02:13
Print Language: ANGOLAN
[2023-12-16 00:54] LABS: Urine Albumin 2+ (Neg - Trace); Urine Bilirubin Negative (Negative); Urine Character Bloody (Clear); Urine Color Red; Urine Glucose Negative (Negative); Urine Ketone Negative (Negative); Urine Leukocyte 2+ (Negative); Urine Nitrite Negative (Negative); Urine Occult Blood 4+ (Negative); Urine Specific Gravity 1.025 (<1.030); Urine Urobilinogen Negative (Neg - 1+)
[2023-12-16 01:17] LABS: Urine Bacteria Moderate (Negative); Urine Red Blood Cell >100 /HPF (0-2); Urine White Cell >100 /HPF (0-5)
[2023-12-16 01:32] VITALS: BP 129/62
[2023-12-16] MEDS: MACROBID 100 MG PO (01:33)
[2023-12-16] MEDS: Pyridium 100 MG PO (01:38)
== END 2023-12-16 02:13 | disposition home or self-care (01) ==
LOC: EMR 00:12
PROVIDERS: Emergency Medicine; EMERGENCY PHYSICIAN Student in an Organized Health Care Education/Training Program; FAMILY PHYSICIAN Family Medicine
DX: N39.0 Urinary tract infection, site not specified (principal); I10 Essential (primary) hypertension; Z87.440 Personal history of urinary (tract) infections; Z87.891 Personal history of nicotine dependence
CPT/HCPCS: 99282; 81003; 81015; 87077; 87086; 87186

== ENCOUNTER → 2024-04-23 12:40 | Outpatient (REF) | payer OTHER, SELFPAY | LOC: RAD 12:40 | PROVIDERS: ATTENDING PHYSICIAN Family Medicine | DX: R63.4 Abnormal weight loss (principal) | CPT/HCPCS: 71260; 74177; Q9967 ==

== ENCOUNTER → 2024-05-14 09:04 | Outpatient (REF) | payer OTHER, SELFPAY | LOC: WDC 09:04 | PROVIDERS: ATTENDING PHYSICIAN Obstetrics & Gynecology Gynecology; FAMILY PHYSICIAN Family Medicine | DX: N64.59 Other signs and symptoms in breast (principal) | CPT/HCPCS: 76642; 77062; 77066 ==